=== PATIENT | female | born 1960 | race Two or more races ===

== ENCOUNTER → 2016-05-11 | Outpatient (CLI) | payer OTHER ==
[~2016-05-11] MED LIST: ALBU6.7H INH; AZIT250T3 PO; METH5TAB4 PO; ZANTTAB PO; ZOFR4TAB3 SL
[2016-05-11 13:16] LABS: AUTOMATED NEUTROPHIL # 7.3 TH/MM3 (1.8-7.7); BASOPHIL % 0.3 % (0.0-2.0); EOSINOPHIL % 0.1 % (0.0-4.0); HEMATOCRIT 42.4 % (35.0-46.0); HEMO FLAGS DIFF FINAL; LYMPH % 14.6 % (9.0-44.0); LYMPHOCYTE # 1.4 TH/MM3 (1.0-4.8); MEAN CELL VOLUME 88.7 FL (80.0-100.0); MEAN CORPUSCULAR HEMOGLOBIN 29.7 PG (27.0-34.0); MEAN CORPUSCULAR HGB CONC 33.5 % (32.0-36.0); MONO % 10.4 % (0.0-8.0); NEUT % 74.6 % (16.0-70.0); PLATELET COUNT 177 TH/MM3 (150-450); RED BLOOD COUNT 4.78 MIL/MM3 (4.00-5.30); RED CELL DISTRIBUTION WIDTH 13.7 % (11.6-17.2); WHITE BLOOD COUNT 9.7 TH/MM3 (4.0-11.0)
[2016-05-11 13:50] LABS: ALKALINE PHOSPHATASE 50 U/L (45-117); ALT (GPT) 26 U/L (10-53); ANION GAP 11 MEQ/L (5-15); AST (GOT) 31 U/L (15-37); BLOOD UREA NITROGEN 18 MG/DL (7-18); CHLORIDE 101 MEQ/L (98-107); GLOMERULAR FILTRATION RATE 77 ML/MIN (>89); GLUCOSE,FASTING 111 MG/DL (74-99); LDL CHOLESTEROL 52 MG/DL (0-99); POTASSIUM 4.4 MEQ/L (3.5-5.1); SODIUM (NA) 135 MEQ/L (136-145); TOTAL BILIRUBIN ADULT 0.4 MG/DL (0.2-1.0)
== END ==
LOC: CLAB 13:00
PROVIDERS: ATTEND Nurse Practitioner Family
DX: R53.83 Other fatigue (principal); N28.1 Cyst of kidney, acquired; D25.9 Leiomyoma of uterus, unspecified
CPT/HCPCS: 36415; 80053; 80061; 84443; 85025

== ENCOUNTER → 2016-05-12 | Outpatient (CLI) | payer OTHER ==
--- NOTE | 2016-05-12 17:11 | RADRPT ---
EXAM DATE/TIME: 05/12/2016 14:39 [facility] COMPARISON: No previous studies available for comparison. INDICATIONS: Cough and short of breath. MEDICAL HISTORY: None. SURGICAL HISTORY: None. ENCOUNTER: Initial ACUITY: 1 week PAIN SCORE: 0/10 LOCATION: Chest FINDINGS: Patchy air space disease is present in the right upper lobe. The left lung is clear. Heat and pulmo nary vascularity normal. Portion of bony skeleton visualized unremarkable. CONCLUSION: Minimal patchy air space disease in the right upper lobe. Ryan Delcid MD FACR on May 12, 2016 at 15:50 Board Certified Radiologist. This report was verified electronically.
== END ==
LOC: HRAD 14:24
PROVIDERS: ATTEND Nurse Practitioner Family
DX: J20.8 Acute bronchitis due to other specified organisms (principal)
CPT/HCPCS: 71020

== ENCOUNTER → 2016-05-15 | Outpatient (CLI) | payer OTHER ==
[2016-05-15 15:25] LABS: FREE T4 1.88 NG/DL (0.76-1.46)
== END ==
LOC: CLAB 14:27
PROVIDERS: ATTEND Nurse Practitioner Family
DX: R79.89 Other specified abnormal findings of blood chemistry (principal)
CPT/HCPCS: 36415; 84439; 84443

== ENCOUNTER → 2016-07-06 | Outpatient (CLI) | payer OTHER ==
[~2016-07-06] MED LIST changes: -AZIT250T3 PO
[2016-07-06 12:58] LABS: FREE T3 2.71 PG/ML (2.18-3.98); FREE T4 0.73 NG/DL (0.76-1.46)
== END ==
LOC: CLAB 12:07
PROVIDERS: ATTEND Nurse Practitioner Family
DX: E05.90 Thyrotoxicosis, unspecified without thyrotoxic crisis or storm (principal)
CPT/HCPCS: 36415; 84439; 84443; 84481

== ENCOUNTER → 2016-10-17 | Outpatient (CLI) | payer OTHER ==
[~2016-10-17] MED LIST changes: -ZOFR4TAB3 SL
[2016-10-17 13:18] LABS: FREE T4 0.3 NG/DL (0.76-1.46)
== END ==
LOC: CLAB 12:21
PROVIDERS: ATTEND Nurse Practitioner Family
DX: E05.90 Thyrotoxicosis, unspecified without thyrotoxic crisis or storm (principal)
CPT/HCPCS: 36415; 84439; 84443

== ENCOUNTER → 2016-11-20 | Outpatient (CLI) | payer OTHER ==
[~2016-11-20] MED LIST changes: -ZANTTAB PO
--- NOTE | 2016-11-20 12:20 | RADRPT ---
EXAM DATE/TIME: 11/20/2016 11:05 [facility] COMPARISON: No previous studies available for comparison. INDICATIONS : Mass. MEDICAL HISTORY : Hyperthyroidism. SURGICAL HISTORY : section. ENCOUNTER: Initial ACUITY: 1 day PAIN SCORE: 0/10 LOCATION: Bilateral neck MEASUREMENTS: RIGHT LOBE: 4.4 x 2.1 x 1.6 cm LEFT LOBE: 3.3 x 1.5 x 1.6 cm FINDINGS: RIGHT LOBE: Heterogeneous echotexture with normal vascularity. The mid gland there is a hypoechoic ovoid area abe suring 5 x 2 x 3 mm. At the lower pole there is an exophytic hypoechoic solid nodule measuring 1.1 x 0.7 x 0.7 cm. The nodules do not contain calcification. LEFT LOBE: Homogeneous echotexture without nodules or cysts. Vascularity is within normal limits. ISTHMUS: Normal in size without focal abnormality. CONCLUSION: Heterogeneous thyroid gland with 2 nodules identified in the right lobe. The largest is exophytic at the lower pole measuring 1.1 cm. Louis Schultz MD on November 20, 2016 at 12:17 Board Certified Radiologist. This report was verified electronically.
== END ==
LOC: HRAD 10:38
PROVIDERS: ATTEND Nurse Practitioner Family
DX: E05.90 Thyrotoxicosis, unspecified without thyrotoxic crisis or storm (principal)
CPT/HCPCS: 76536

== ENCOUNTER 2016-12-05 12:49 | Day surgery (SDC) | payer OTHER ==
[~2016-12-05 12:49] MED LIST changes: -METH5TAB4 PO
[2016-12-05 13:32] VITALS: BP 143/70; PULSE 72; RESP 16; TEMP 97; O2SAT 98
--- NOTE | 2016-12-05 14:23 | RADRPT ---
EXAM DATE/TIME: 12/05/2016 13:39 [facility] COMPARISON: No previous studies available for comparison. INDICATIONS : Right thyroid nodule. MEDICAL HISTORY : Hyperthyroidism. Gastroesophageal reflux disease. SURGICAL HISTORY : section. ENCOUNTER: Subsequent ACUITY: 2 weeks PAIN SCORE: 1/10 LOCATION: Right neck ORGAN: Right thyroid lobe SPECIMENS: Three fine needle aspirate(s) submitted for pathologic evaluation. DEVICE: 22 gauge needle Post procedure scanning reveals no hematoma or other complication. The possibility does exist that the tissue obtained will be non-diagnostic. If the sample is non-yeny gnostic a repeat biopsy or surgical biopsy may need to be performed. TECHNIQUE: 1. Ultrasound guidance for needle biopsy. 2. Needle biopsy. The risks, benefits, and alternatives to ultrasound guided needle biopsy were explained to the patien t in detail including the risk of bleeding and infection. Written and verbal informed consent was ob tained. With the patient on the ultrasound table, images were obtained. Overlying skin was prepped and drape d in the usual sterile fashion and Lidocaine was utilized as a local anesthetic. The hypoechoic nodule either within or directly adjacent to the lower pole is difficult to see. It me asures 14 x 13 x 6 mm. It is better visualized in the sagittal plane in the transverse plane. A needl e was advanced into the hypoechoic nodule involving the inferior right lobe and 3 specimens obtained and submitted for pathologic evaluation. The patient tolerated the procedure well and left the ultrasound suite in stable condition. CONCLUSION: Uncomplicated ultrasound guided needle biopsy. Boy Johnson Jr., MD on December 05, 2016 at 14:20 Board Certified Radiologist. This report was verified electronically.
[2016-12-05] MEDS ORDERED: LIDOCAINE HCL 1% 20 ML VIAL ONE (14:34)
[2016-12-12] MEDS ORDERED: METH5TAB4 PO (09:55)
== END 2016-12-05 15:54 | disposition home or self-care (01) ==
LOC: HRAD 12:49 → HRIP 12:50 → HRAD 15:54
PROVIDERS: ATTEND Nurse Practitioner Family
DX: E04.1 Nontoxic single thyroid nodule (principal); E05.90 Thyrotoxicosis, unspecified without thyrotoxic crisis or storm; K21.9 Gastro-esophageal reflux disease without esophagitis
CPT/HCPCS: 10022; 76942; 88172; 88173

== ENCOUNTER → 2016-12-05 | Outpatient (CLI) | payer OTHER ==
[2016-12-05 13:31] LABS: FREE T4 1.56 NG/DL (0.76-1.46)
== END ==
LOC: CLAB 12:36
PROVIDERS: ATTEND Nurse Practitioner Family
DX: E05.90 Thyrotoxicosis, unspecified without thyrotoxic crisis or storm (principal)
CPT/HCPCS: 84439; 84443

== ENCOUNTER → 2016-12-21 | Outpatient (CLI) | payer OTHER ==
[~2016-12-21] MED LIST changes: +METH5TAB4 PO
== END ==
LOC: CLAB 09:20
PROVIDERS: ATTEND Surgery
DX: E05.90 Thyrotoxicosis, unspecified without thyrotoxic crisis or storm (principal)
CPT/HCPCS: 36415

== ENCOUNTER → 2017-01-08 | Outpatient (CLI) | payer OTHER ==
--- NOTE | 2017-01-09 10:36 | RADRPT ---
EXAM DATE/TIME: 01/09/2017 08:37 [facility] Corrected on: January 10, 2017; added none to medical history [facility] COMPARISON: No previous studies available for comparison. INDICATIONS : Hyperthroidism. DOSE: 312 uCi Iodine-123 PO 24 HOUR UPTAKE: 51% PLANAR IMAGIN hrs MEDICAL HISTORY : none SURGICAL HISTORY : section. ENCOUNTER: [facility] ACUITY: 4 - 6 months PAIN SCALE: 0/10 LOCATION: neck TECHNIQUE: Planar images of the neck were obtained in AP and both anterior oblique projections. 2 4-hour uptake was calculated as well. FINDINGS: Recent ultrasound examination demonstrated heterogeneous thyroid gland with 2 right nodules measuring up to 1.1 cm in the lower pole. Thyroid gland appears normal in size and demonstrates diffuse homoge neous uptake. No significant increased or decreased focal areas of uptake noted. CONCLUSION: 1. Previously described right thyroid nodules do not correspond to focal uptake abnormality. 2. Homogeneously diffusely increased thyroid uptake most consistent with Graves' disease. 1. John Jacob MD on January 09, 2017 at 10:27 Board Certified Radiologist. This report was verified electronically.
== END ==
LOC: HRAD 08:22
PROVIDERS: ATTEND Surgery
DX: E05.90 Thyrotoxicosis, unspecified without thyrotoxic crisis or storm (principal)
CPT/HCPCS: 78012; A9516